=== PATIENT | male | born 1960 | race Caucasian/White ===

== ENCOUNTER 2017-09-07 03:27 | Observation (INO) | payer BC ==
[~2017-09-07] VITALS: Ht 167.6 cm; Wt 82.1 kg
[2017-09-07 04:11] LABS: APPEARANCE CLEAR ((CLEAR)); BILIRUBIN NEGATIVE; BLOOD MODERATE; COLOR YELLOW ((YELLOW)); GLUCOSE (STRIP) NEGATIVE; KETONES NEGATIVE; LEUKOCYTES NEGATIVE; NITRITE NEGATIVE; PROTEIN (STRIP) NEGATIVE; SPECIFIC GRAVITY 1.017 (1.000-1.030); UROBILINOGEN 0.2 MG/DL (0.2-1.0)
[2017-09-07 04:13] LABS: BACTERIA NONE SEEN /HPF; EPITHELIAL CELLS NONE SEEN /HPF; MUCUS TRACE /LPF; RED BLOOD CELLS TNTC /HPF (0-5); UCUL ADDED? YES; WHITE BLOOD CELLS 0-5 /HPF (0-5)
[2017-09-07 04:17] LABS: HEMATOCRIT 40.9 % (38.0-50.0); HEMOGLOBIN 13.9 G/DL (12.5-16.6); MCV 85.2 FL (86-99); PLATELET COUNT 203 K/uL (156-360); RBC DIS.WIDTH-CV 13.5 % (11.8-14.6); RBC DIS.WIDTH-SD 41.8 % (39-53); WHITE BLOOD COUNT 8.6 K/uL (4.1-10.2)
[2017-09-07 04:25] LABS: ALBUMIN 4.1 g/dL (3.2-4.8)
[2017-09-07 04:26] LABS: CHLORIDE 108 mEq/L (99-109); POTASSIUM 3.7 mEq/L (3.7-5.4); SODIUM 145 mEq/L (136-147)
[2017-09-07 04:28] LABS: GLUCOSE 124 mg/dL (70-99); TOTAL PROTEIN 7.4 g/dL (6.4-8.3)
[2017-09-07 04:30] LABS: TOTAL BILIRUBIN 0.4 mg/dL (0.0-1.0)
[2017-09-07 04:31] LABS: ALKALINE PHOSPHATASE 79 IU/L (3-129)
[2017-09-07 04:32] LABS: CREATININE 1.4 mg/dL (0.6-1.3); GFR ESTIMATE (CALCULATED) 55 mL/min/ (58.99-99999)
[2017-09-07 04:33] LABS: AST (GOT) 17 IU/L (2-34); UREA NITROGEN (BUN) 18 mg/dL (9-23)
[2017-09-07 04:34] LABS: ALT (GPT) 32 IU/L (3-49)
[2017-09-07] MEDS ORDERED: XANAX0.5 MG PO (07:52)
[2017-09-07] MEDS ORDERED: LOPRESSOR50 MG PO (07:52)
[2017-09-07] MEDS ORDERED: ENDOCET 5-3251 EACH PO (07:52)
[2017-09-07 09:41] VITALS: BP 136/69
[2017-09-07 12:07] VITALS: BP 124/78
[2017-09-07 16:05] VITALS: BP 161/83
[2017-09-07 18:30] VITALS: BP 133/84
[2017-09-08 04:11] VITALS: BP 122/91
[2017-09-08 05:34] LABS: HEMATOCRIT 37.5 % (38.0-50.0); HEMOGLOBIN 12.4 G/DL (12.5-16.6); MCH 28.3 PG (29.0-34.0); MCHC 33.1 G/DL (30.0-36.0); MCV 85.6 FL (86-99); PLATELET COUNT 182 K/uL (156-360); RBC DIS.WIDTH-CV 13.6 % (11.8-14.6); RBC DIS.WIDTH-SD 42.6 % (39-53); RED BLOOD COUNT 4.38 M/uL (4.00-5.50); WHITE BLOOD COUNT 9.8 K/uL (4.1-10.2)
[2017-09-08 06:01] LABS: CHLORIDE 107 MEQ/L (99-109); CREATININE 1.5 MG/DL (0.6-1.3); GFR ESTIMATE (CALCULATED) 51 mL/min/ (58.99-99999); GLUCOSE 135 mg/dL (70-99); POTASSIUM 3.8 MEQ/L (3.7-5.4); SODIUM 140 MEQ/L (136-147); UREA NITROGEN (BUN) 14 mg/dL (9-23)
[2017-09-08 07:57] VITALS: BP 133/73
[2017-09-08 11:55] VITALS: BP 134/77
[2017-09-08] MEDS ORDERED: TAMSULOSIN HCL0.4 MG PO (12:16)
== END 2017-09-08 16:13 | disposition home or self-care (01) ==
LOC: EME 03:27 → EDOF 08:10 → ENRESERV 08:13 → 4SOUTH 09:26
PROVIDERS: Hospitalist; Physician Assistant
DX: N13.2 Hydronephrosis with renal and ureteral calculous obstruction (principal); R31.29 Other microscopic hematuria; I10 Essential (primary) hypertension; I47.1 Supraventricular tachycardia; M10.9 Gout, unspecified; N17.0 Acute kidney failure with tubular necrosis; Z87.442 Personal history of urinary calculi; N28.1 Cyst of kidney, acquired
CPT/HCPCS: 74176; 80048; 80053; 81003; 85027; 87086; 99281; 99285; G0378; J1644; J1885; J2405; J3010; J7030